=== PATIENT | male | born 1960 | race Caucasian/White ===

== ENCOUNTER 2017-07-02 04:23 | Emergency (ER) | payer BC ==
[2017-07-02 04:53] LABS: ABSOLUTE BASOPHILS # (AUTO) 0.1 10^3/uL (0.0-0.2); ABSOLUTE EOSINOPHILS # (AUTO) 0.2 10^3/uL (0.0-0.6); ABSOLUTE LYMPHOCYTES (AUTO) 1.7 10^3/uL (0.5-4.7); ABSOLUTE MONOCYTES (AUTO) 0.6 10^3/uL (0.1-1.4); ABSOLUTE NEUT (AUTO) 10.4 10^3/uL (1.7-8.2); BASOPHILS % (AUTO) 0.4 % (0-2); EOSINOPHILS % (AUTO) 1.2 % (0-6); HEMATOCRIT 24.7 % (37.9-51.0); HEMOGLOBIN 8.3 g/dL (13.5-17.0); LYMPHOCYTES % (AUTO) 13.4 % (13-45); MEAN CORPUSCULAR HEMOGLOBIN 28.5 pg (27.0-33.4); MEAN CORPUSCULAR HGB CONC 33.6 g/dL (32.0-36.0); MEAN CORPUSCULAR VOLUME 85 fl (80-97); MONOCYTES % (AUTO) 4.3 % (3-13); PLATELET COUNT 169 10^3/uL (150-450); RED BLOOD COUNT 2.91 10^6/uL (4.35-5.55); RED CELL DISTRIBUTION WIDTH 13.2 % (11.5-14.0); SEGMENTED NEUTROPHILS % (AUTO) 80.7 % (42-78); TOTAL CELLS COUNTED % (AUTO) 100 %; WHITE BLOOD COUNT 12.9 10^3/uL (4.0-10.5)
[2017-07-02] MEDS ORDERED: NORMAL SALINE 1000 ML 500 ML IV ONE (04:54)
[2017-07-02 05:00] LABS: ALANINE AMINOTRANSFERASE 24 U/L (21-72); ALBUMIN 2.7 g/dL (3.5-5.0); ALKALINE PHOSPHATASE 62 U/L (38-126); ANION GAP 9 (5-19); ASPARTATE AMINO TRANSFERASE 12 U/L (17-59); BILIRUBIN,TOTAL < 0.1 mg/dL (0.2-1.3); BLOOD UREA NITROGEN 39 mg/dL (7-20); CALCIUM 8.6 mg/dL (8.4-10.2); CARBON DIOXIDE 28 mmol/L (22-30); CHLORIDE 106 mmol/L (98-107); GLUCOSE 131 mg/dL (75-110); LIPASE 16.2 U/L (23-300); POTASSIUM 4.4 mmol/L (3.6-5.0); SODIUM 142.7 mmol/L (137-145); TOTAL PROTEIN 4.8 g/dL (6.3-8.2)
--- NOTE | 2017-07-02 05:22 | ER Document Report ---
ED GI/ - General Mode of Arrival: Medic Information source: Patient TRAVEL OUTSIDE OF THE [place] IN LAST 30 DAYS: No <CARLOS A BROWN - Last Filed: 07/02/17 06:38> <SHANNAN PAINTING - Last Filed: 07/02/17 11:08> - General Chief Complaint: Nausea/Vomiting Stated Complaint: NAUSEA/VOMITING Time Seen by Provider: 07/02/17 04:40 Notes: Patient is a 56-year-old male who presents to the ER via EMS today for nausea, vomiting that woke him up at 2 AM this morning. Patient states that he also had it 2 days ago. He denies any diarrhea, blood in his vomit or stool, abdominal pain, chest pain, fevers or chills that he knows of. Patient states that the only thing he can think of is that he drinks some juice that had been sitting in the car for more than 4 days. (CARLOS A BROWN) - Related Data Allergies/Adverse Reactions: No Known Allergies Allergy (Unverified 07/02/17 05:52) Past Medical History - General Information source: Patient - Social History Smoking Status: Unknown if Ever Smoked Family History: Reviewed & Not Pertinent Pulmonary Medical History: Reports: Hx Asthma Past Surgical History: Reports: Hx Umbilical Hernia <CARLOS A BROWN - Last Filed: 07/02/17 06:38> Review of Systems - Review of Systems Constitutional: See HPI EENT: No symptoms reported Cardiovascular: No symptoms reported Respiratory: No symptoms reported Gastrointestinal: See HPI Genitourinary: No symptoms reported Male Genitourinary: No symptoms reported Musculoskeletal: No symptoms reported Skin: No symptoms reported Hematologic/Lymphatic: No symptoms reported Neurological/Psychological: No symptoms reported <CARLOS A BROWN - Last Filed: 07/02/17 06:38> Physical Exam <CARLOS A BROWN - Last Filed: 07/02/17 06:38> <SHANNAN PAINTING - Last Filed: 07/02/17 11:08> - Vital signs Vitals: Temp Pulse Resp BP Pulse Ox 97.3 F 79 18 100/59 L 96 07/02/17 04:34 07/02/17 04:34 07/02/17 04:34 07/02/17 04:34 07/02/17 04:34 - Notes Notes: PHYSICAL EXAMINATION: GENERAL: Mildly ill-appearing, but laughing, talkative, in no acute distress. HEAD: Atraumatic, normocephalic. EYES: Pupils equal round and reactive to light, extraocular movements intact, sclera anicteric, conjunctiva are normal. NECK: Normal range of motion, supple without lymphadenopathy LUNGS: CTAB and equal. No wheezes rales or rhonchi. HEART: Regular rate and rhythm without murmurs ABDOMEN: Soft, no tenderness. No guarding, no rebound BACK: no vertebral tenderness, normal ROM GI/: no CVA tenderness EXTREMITIES: Normal range of motion, no pitting edema. No cyanosis. NEUROLOGICAL: Cranial nerves grossly intact. Normal sensory/motor exams. PSYCH: Normal mood, normal affect. SKIN: Warm, Dry, normal turgor, no rashes or lesions noted (CARLOS A BROWN) Course - Laboratory Result Diagrams: 07/02/17 04:34 07/02/17 04:34 <CARLOS A BROWN - Last Filed: 07/02/17 06:38> - Laboratory Result Diagrams: 07/02/17 04:34 07/02/17 04:34 <SHANNAN PAINTING - Last Filed: 07/02/17 11:08> - Re-evaluation Re-evalutation: 07/02/17 05:46 Hemoglobin of 8.3, white blood cell count of 12.9, BUN of 39, rectal exam shows dark, tarry stools and black blood all around the anus, obviously positive for blood. Patient has not vomited here in the emergency department. I have ordered packed red blood cells for active bleeding, Protonix and IV fluids. Patient has no pain. We have no gastroenterology organic preparation technician here at [facility], I have called [facility] and initiated transfer. 07/02/17 06:38 Dr. Costello, hospitalist with [facility] accepts pt at this time for transfer. (CARLOS A BROWN) 07/02/17 09:05 RN reports patient feeling nauseated. Zofran ordered. Pt transported to [facility] infusing. (SHANNAN PAINTING) - Vital Signs Vital signs: Temp Pulse Resp BP Pulse Ox 98.2 F 79 13 112/70 100 07/02/17 09:28 07/02/17 09:28 07/02/17 09:28 07/02/17 09:28 07/02/17 09:28 - Laboratory Laboratory results interpreted by me: 07/02/17 07/02/17 07/02/17 04:34 04:34 06:20 WBC 12.9 H RBC 2.91 L Hgb 8.3 L Hct 24.7 L Seg Neutrophils % 80.7 H Absolute Neutrophils 10.4 H BUN 39 H Glucose 131 H Total Bilirubin < 0.1 L AST 12 L Total Protein 4.8 L Albumin 2.7 L Lipase 16.2 L Crossmatch See Detail Discharge <CARLOS A BROWN - Last Filed: 07/02/17 06:38> <SHANNAN PAINTING - Last Filed: 07/02/17 11:08> - Discharge Clinical Impression: GI bleed Qualifiers: GI bleed type/associated pathology: melena Qualified Code(s): K92.1 - Melena Condition: Stable Disposition: [facility] Additional Instructions: Return immediately for any new or worsening symptoms. Follow up with primary care provider, call tomorrow to make followup appointment.
[2017-07-02] MEDS ORDERED: PANTOPRAZOLE SODIUM 40 MG VIAL IV ONE (05:23)
[2017-07-02] MEDS ORDERED: NORMAL SALINE 250 ML IV PRN (05:45)
[2017-07-02] MEDS ORDERED: PANTOPRAZOLE SODIUM 40 MG VIAL IV PRN (06:38)
[2017-07-02 07:22] LABS: APPEARANCE,URINE CLEAR; BILIRUBIN,URINE NEGATIVE (NEGATIVE); COLOR,URINE YELLOW; GLUCOSE, URINE NEGATIVE (NEGATIVE); KETONES,URINE NEGATIVE (NEGATIVE); LEUKOCYTE ESTERASE,URINE NEGATIVE (NEGATIVE); NITRITE,URINE NEGATIVE (NEGATIVE); PROTEIN,URINE NEGATIVE (NEGATIVE); UROBILINOGEN,URINE NEGATIVE mg/dL (<2.0)
[2017-07-02] MEDS ORDERED: ONDANSETRON HCL INJ/PF 4 MG/2 ML SDV IV ONE (09:10)
[2017-07-02 09:42] VITALS: BP 112/70
== END 2017-07-02 09:40 | disposition short-term general hospital (02) ==
LOC: ER 04:23
DX: K92.1 Melena (principal); R11.2 Nausea with vomiting, unspecified; J45.909 Unspecified asthma, uncomplicated
CPT/HCPCS: 96376; 99285; 96361; 96375; 96365; 96366; 86900; 86901; 36415; 36430; 86850; 83690; 85025; 82272; 80053; 81001; 86920; P9016; S0164; J2405; J7030

== ENCOUNTER 2020-03-22 02:08 | Inpatient (IN) | payer SELFPAY ==
--- NOTE | 2020-03-22 02:36 | ER Document Report ---
Entered by STEPHANIE PATEL SCRIBE 03/22/20 0225 Acting as scribe for:ORI SMITH IV, MD ED Psych Disorder / Suicide - General Mode of Arrival: Medic Information source: Emergency Med Personnel Cannot obtain history due to: Altered mental status TRAVEL OUTSIDE OF THE [place] IN LAST 30 DAYS: No <ORI SMITH IV - Last Filed: 03/22/20 06:26> <RUBY MAGUIRE - Last Filed: 03/22/20 16:07> - General Chief Complaint: Suicidal Ideation Stated Complaint: SUICIDE ATTEMPT Time Seen by Provider: 03/22/20 02:14 Notes: This 59-year-old male patient presents to the emergency department today with complaints of a possible suicide attempt prior to arrival. EMS reported that the patient's "heard a pill bottle shaking" at around 8 PM tonight and it was tylenol PM. At 10 PM he left his house and never came back. states she thinks he took #90 tylenol PM. Patient's called law enforcement and they began a search for the patient as he has been depressed and she thought he may have ran away to commit suicide. Apparently law enforcement searched for a few hours until they found the patient due to him snoring in the noel. Patient is altered and unable to provide any meaningful history. (ORI SMITH IV) - Related Data Allergies/Adverse Reactions: No Known Allergies Allergy (Unverified 07/02/17 05:52) Past Medical History - General Cannot obtain history due to: Altered mental status - Social History Smoking Status: Unknown if Ever Smoked Family History: Reviewed & Not Pertinent Pulmonary Medical History: Reports: Hx Asthma Past Surgical History: Reports: Hx Umbilical Hernia <ORI SMITH IV - Last Filed: 03/22/20 06:26> Review of Systems - Review of Systems -: Yes ROS unobtainable due to patient's medical condition <ORI SMITH IV - Last Filed: 03/22/20 06:26> Physical Exam <ORI SMITH IV - Last Filed: 03/22/20 06:26> - Vital signs Vitals: Temp Pulse Resp BP Pulse Ox 90.3 F L 116 H 21 H 166/88 H 97 03/22/20 02:10 03/22/20 02:10 03/22/20 02:10 03/22/20 02:10 03/22/20 02:10 - Notes Notes: Physical Exam: General: Awake but not alert or oriented. HEENT: Normocephalic. PERRL. Extraocular movements intact. Oropharynx clear. There are superficial abrasions to the top of the head. Neck: Supple. Non-tender. Respiratory: No respiratory distress. Clear and equal breath sounds bilaterally. Cardiovascular: Tachycardic, regular rhythm. Abdominal: Normal Inspection. Non-tender. No distension. Normal Bowel Sounds. Back: No gross abnormalities. Extremities: Moves all four extremities. Upper extremities: Normal inspection. Normal ROM. Lower extremities: Normal inspection. No edema. Normal ROM. Neurological: Mumbled incomprehensible speech Psychological: Unable to assess Skin: Cold to the touch. Dry. Normal color. (ORI SMITH IV) Course - Laboratory Results Result Diagrams: 03/22/20 02:16 03/22/20 02:16 Critical Laboratory Results Reviewed: Yes Attending or Supervising Physician who Reviewed Labs: ORI SMITH IV - Radiology Results Critical Radiology Results Reviewed: No Critical Results - Transfer of Care Care transferred to following provider: Dr. Maguire @ 0623 <ORI SMITH IV - Last Filed: 03/22/20 06:26> - Laboratory Results Result Diagrams: 03/22/20 02:16 03/22/20 02:16 <RUBY MAGUIRE JR - Last Filed: 03/22/20 16:07> - Re-evaluation Re-evalutation: 03/22/20 02:36 Differential diagnosis: Drug overdose, suicide attempt, suicidal gesture, acetaminophen overdose 03/22/20 02:48 Patient is alternating between periods of confusion and combativeness where he is trying to pull out his [place] and get out of the bed. Four-point restraints were ordered by this MD after face to face assessment of the patient. 03/22/20 03:09 Patient's Tylenol level came back at 310. Poison control has been contacted for input on management. Certainly this will involve the use of NAC. Given the patient's intermittent episodes of agitation, I am wondering if he took Tylenol PM which contains diphenhydramine. Will consult poison control in terms of options for possible sedation given the patient is in four-point restraints and is very agitated, yelling profanities and is not able to be directed with verbal direction alone. 03/22/20 06:20 Patient discussed with poison control. They agreed with using NAC protocol. They recommended benzodiazepines for agitation and if 1 particular type of benzodiazepine does not work we should switch to a different benzodiazepine and if agitation continues to be a problem despite this, we can call poison control back and speak to one of their grain spouter. (ORI SMITH IV) - Vital Signs Vital signs: Temp Pulse Resp BP Pulse Ox 98.4 F 116 H 14 138/91 H 98 03/22/20 15:56 03/22/20 02:10 03/22/20 15:00 03/22/20 15:00 03/22/20 15:00 - Laboratory Results Laboratory Results Interpreted: 03/22/20 03/22/20 03/22/20 02:16 02:16 02:16 WBC 13.8 H RBC 6.18 H Hgb 17.8 H Hct 53.4 H Absolute Neuts (auto) 10.3 H Carbon Dioxide 12 L Anion Gap 23 H Glucose 225 H Lactic Acid AST Alkaline Phosphatase Creatine Kinase 53 L Total Protein Urine Protein Urine Glucose (UA) Urine Ketones Salicylates 1.8 L Acetaminophen 310 H* 03/22/20 03/22/20 03/22/20 02:34 03:35 03:37 WBC RBC Hgb Hct Absolute Neuts (auto) Carbon Dioxide Anion Gap Glucose Lactic Acid 14.1 H AST 15 L Alkaline Phosphatase 20 L Creatine Kinase Total Protein Urine Protein 30 H Urine Glucose (UA) 150 H Urine Ketones 20 H Salicylates Acetaminophen 251 H* 03/22/20 03/22/20 03/22/20 03:37 08:00 13:40 WBC RBC Hgb Hct Absolute Neuts (auto) Carbon Dioxide Anion Gap Glucose Lactic Acid AST 73 H Alkaline Phosphatase 34 L Creatine Kinase Total Protein 6.2 L Urine Protein Urine Glucose (UA) Urine Ketones Salicylates 1.6 L Acetaminophen 184 H* 60 H - EKG Interpretation by Me Additional EKG results interpreted by me: 03/22/20 02:37 EKG obtained on 03/22/2020 at 0229 hrs. was interpreted by this MD. Findings: Sinus tachycardia, rate 109, normal axis, MI interval appears to be within normal limits, P waves preceding QRS complexes, QRS complexes appear narrow, QTC is 464, there are no obvious patterns of ST segment elevation, depression or reciprocal changes seen to suggest acute myocardial ischemia or infarction. There is no prior EKG readily available for comparison. Impression sinus tachycardia with nonspecific ST segments. (ORI SMITH IV) Critical Care Note - Critical Care Note Total time excluding time spent on procedures (mins): 120 - management of tylenol overdose and hypothermia <ORI SMITH IV - Last Filed: 03/22/20 06:26> <RUBY MAGUIRE JR - Last Filed: 03/22/20 16:07> - Critical Care Note Comments: Room 19 out of restraints at 0 815 and somnolent after Ativan 2 mg IV per nursing staff. I spoke with Dr. Sevilla and he will see the patient presently. This was at 1330. He evaluated patient and ordered a lactic acid. By 1500 patient was awake and asking for something to eat and drink. This case was discussed with TEMITOPE Conway at 1600 and she advised who I spoke to a few minutes later. He advised IMCU for this patient. (RUBY MAGUIRE JR) Discharge <ORI SMITH IV - Last Filed: 03/22/20 06:26> - Discharge Admitting Provider: [facility] (Hospitalist) Unit Admitted: IMCU <RUBY MAGUIRE JR - Last Filed: 03/22/20 16:07> - Discharge Clinical Impression: Suicide attempt, Involuntary commitment Drug overdose, intentional Qualifiers: Encounter type: initial encounter Qualified Code(s): T50.902A - Poisoning by unspecified drugs, medicaments and biological substances, intentional self-harm, initial encounter Acetaminophen overdose Qualifiers: Encounter type: initial encounter Injury intent: intentional self-harm Qualified Code(s): T39.1X2A - Poisoning by 4-Aminophenol derivatives, intentional self-harm, initial encounter Hypothermia Qualifiers: Encounter type: initial encounter Qualified Code(s): T68.XXXA - Hypothermia, initial encounter Condition: Serious Disposition: ADMITTED INPATIENT I personally performed the services described in the documentation, reviewed and edited the documentation which was dictated to the scribe in my presence, and it accurately records my words and actions.
[2020-03-22 02:41] LABS: ABSOLUTE BASOPHILS # (AUTO) 0.1 10^3/uL (0.0-0.2); ABSOLUTE LYMPHOCYTES (AUTO) 2.6 10^3/uL (0.5-4.7); ABSOLUTE MONOCYTES (AUTO) 0.7 10^3/uL (0.1-1.4); ABSOLUTE NEUT (AUTO) 10.3 10^3/uL (1.7-8.2); BASOPHILS % (AUTO) 0.7 % (0-2); EOSINOPHILS % (AUTO) 0.2 % (0-6); HEMATOCRIT 53.4 % (37.9-51.0); HEMOGLOBIN 17.8 g/dL (13.5-17.0); LYMPHOCYTES % (AUTO) 18.9 % (13-45); MEAN CORPUSCULAR HEMOGLOBIN 28.8 pg (27.0-33.4); MEAN CORPUSCULAR HGB CONC 33.3 g/dL (32.0-36.0); MEAN CORPUSCULAR VOLUME 86 fl (80-97); MONOCYTES % (AUTO) 5.3 % (3-13); PLATELET COUNT 166 10^3/uL (150-450); RED BLOOD COUNT 6.18 10^6/uL (4.35-5.55); RED CELL DISTRIBUTION WIDTH 13.4 % (11.5-14.0); SEGMENTED NEUTROPHILS % (AUTO) 74.9 % (42-78); TOTAL CELLS COUNTED % (AUTO) 100 %; WHITE BLOOD COUNT 13.8 10^3/uL (4.0-10.5)
[2020-03-22] MEDS ORDERED: NORMAL SALINE 1000 ML 1,000 ML IV ONE ×4 (02:43→14:32)
[2020-03-22 02:51] LABS: ALBUMIN 4.3 g/dL (3.5-5.0); ALKALINE PHOSPHATASE 101 U/L (38-126); ASPARTATE AMINO TRANSFERASE 20 U/L (17-59); BILIRUBIN,DIRECT 0.3 mg/dL (0.0-0.4); BILIRUBIN,TOTAL 0.7 mg/dL (0.2-1.3); BLOOD UREA NITROGEN 10 mg/dL (7-20); CALCIUM 9.1 mg/dL (8.4-10.2); CARBON DIOXIDE 12 mmol/L (22-30); CHLORIDE 103 mmol/L (98-107); GLUCOSE 225 mg/dL (75-110); POTASSIUM 3.6 mmol/L (3.6-5.0); SALICYLATE 1.8 mg/dL (2.0-20.0); TOTAL PROTEIN 7.1 g/dL (6.3-8.2)
[2020-03-22 02:54] LABS: ALCOHOL < 10 mg/dL (NONE DETECTED)
[2020-03-22 02:57] LABS: ANION GAP 23 (5-19)
[2020-03-22 02:59] LABS: ACETAMINOPHEN 310 ug/mL (10-30)
[2020-03-22 03:04] LABS: APPEARANCE,URINE CLEAR; BILIRUBIN,URINE NEGATIVE (NEGATIVE); COLOR,URINE YELLOW; GLUCOSE, URINE 150 mg/dL (NEGATIVE); KETONES,URINE 20 mg/dL (NEGATIVE); LEUKOCYTE ESTERASE,URINE NEGATIVE (NEGATIVE); NITRITE,URINE NEGATIVE (NEGATIVE); PROTEIN,URINE 30 mg/dL (NEGATIVE); URINE SPECIFIC GRAVITY 1.029; UROBILINOGEN,URINE NEGATIVE mg/dL (<2.0)
[2020-03-22] MEDS ORDERED: ACETYLCYSTEINE INJ 6000 MG/30 ML IV ONE ×3 (03:11→08:12)
[2020-03-22 03:12] LABS: URINE AMPHETAMINES SCREEN NEGATIVE; URINE BARBITURATES SCREEN NEGATIVE; URINE COCAINE SCREEN NEGATIVE; URINE MARIJUANA (THC) SCREEN NEGATIVE; URINE METHADONE SCREEN NEGATIVE; URINE PHENCYCLIDINE SCREEN NEGATIVE
[2020-03-22] MEDS ORDERED: LORAZEPAM INJ 2 MG/1 ML VIAL IV ONE ×2 (03:17→07:39)
[2020-03-22 03:22] LABS: URINE BENZODIAZEPINES SCREEN NEGATIVE
[2020-03-22 05:30] LABS: ALBUMIN 3.8 g/dL (3.5-5.0); ALKALINE PHOSPHATASE 20 U/L (38-126); ASPARTATE AMINO TRANSFERASE 15 U/L (17-59); BILIRUBIN,DIRECT 0.2 mg/dL (0.0-0.4); BILIRUBIN,TOTAL 0.4 mg/dL (0.2-1.3); TOTAL PROTEIN 6.3 g/dL (6.3-8.2)
[2020-03-22 05:46] LABS: ACETAMINOPHEN 251 ug/mL (10-30)
[2020-03-22 08:42] LABS: ALBUMIN 3.6 g/dL (3.5-5.0); ALKALINE PHOSPHATASE 34 U/L (38-126); ASPARTATE AMINO TRANSFERASE 30 U/L (17-59); BILIRUBIN,DIRECT 0.3 mg/dL (0.0-0.4); BILIRUBIN,TOTAL 0.6 mg/dL (0.2-1.3); TOTAL PROTEIN 6.2 g/dL (6.3-8.2)
[2020-03-22 08:56] LABS: ACETAMINOPHEN 184 ug/mL (10-30)
--- NOTE | 2020-03-22 09:00 | EKG REPORT ---
SEVERITY:- BORDERLINE ECG - SINUS RHYTHM BORDERLINE LEFT AXIS DEVIATION BORDERLINE PROLONGED QT INTERVAL : Confirmed by: Dat Ford MD 22-Mar-2020 09:00:25
--- NOTE | 2020-03-22 09:01 | EKG REPORT ---
SEVERITY:- ABNORMAL ECG - SINUS OR ECTOPIC ATRIAL TACHYCARDIA PROBABLE LEFT ATRIAL ABNORMALITY NONSPECIFIC INTRAVENTRICULAR CONDUCTION DELAY : Confirmed by: Dat Ford MD 22-Mar-2020 09:01:01
[2020-03-22] MEDS ORDERED: ONDANSETRON HCL INJ/PF 4 MG/2 ML SDV IV ONE (09:15)
[2020-03-22] MEDS ORDERED: PROMETHAZINE HCL INJ 25 MG/1 ML VIAL IV ONE (10:12)
[2020-03-22 14:19] LABS: ACETAMINOPHEN 60 ug/mL (10-30); ALBUMIN 3.6 g/dL (3.5-5.0); ALKALINE PHOSPHATASE 56 U/L (38-126); ASPARTATE AMINO TRANSFERASE 73 U/L (17-59); BILIRUBIN,DIRECT 0.3 mg/dL (0.0-0.4); TOTAL PROTEIN 6.3 g/dL (6.3-8.2)
--- NOTE | 2020-03-22 14:24 | RADIOLOGY REPORT (SQ) ---
EXAM DESCRIPTION: CHEST SINGLE VIEW IMAGES COMPLETED DATE/TIME: 03/22/2020 12:58 pm REASON FOR STUDY: vomiting ?asp COMPARISON: None. EXAM PARAMETERS: NUMBER OF VIEWS: One view. TECHNIQUE: Single frontal radiographic view of the chest acquired. RADIATION DOSE: NA LIMITATIONS: None. FINDINGS: LUNGS AND PLEURA: No opacities, masses or pneumothorax. No pleural effusion. MEDIASTINUM AND HILAR STRUCTURES: No masses. Contour normal. HEART AND VASCULAR STRUCTURES: Heart normal in size. Normal vasculature. BONES: No acute findings. HARDWARE: None in the chest. OTHER: No other significant finding. IMPRESSION: NO ACUTE RADIOGRAPHIC FINDING IN THE CHEST. TECHNICAL DOCUMENTATION: JOB ID: [id number] 2010 [employer]- All Rights Reserved Reading location - IP/workstation name: [email or web address]
--- NOTE | 2020-03-22 16:57 | ER Document Report ---
Doctor's Note Notes: 03/22/20 16:57 Patient's vital signs and previous labs, diagnostic images reviewed. Acetaminophen level has dramatically decreased, lactic is normal. reviewed mental health notes, nurse's notes and previous providers notes. VSS. Pt is in no distress at this time. Denies any SI or HI. General: A&Ox3. Answers questions appropriately. Heart: RRR Lungs: CTAB Psych: Flat affect A/P: Continue monitoring and rec's per MH. Normal diet plan: We will stay at least for another day, continue to monitor.
[2020-03-22] MEDS ORDERED: MAG HYDROX/AL HYDROX/SIMETH SUSP 30 ML UDCUP PO PRN (17:03)
[2020-03-22] MEDS ORDERED: PROMETHAZINE HCL INJ 25 MG/1 ML VIAL IV PRN (17:03)
[2020-03-22] MEDS ORDERED: MAGNESIUM HYDROXIDE SUSP 30 ML UDCUP PO PRN (17:03)
--- NOTE | 2020-03-22 17:03 | PDOC CRITICAL CARE PROG REPORT ---
General Date:: 03/22/20 Resuscitation Status: Full Code Events in the past 12 to 24 Hours:: Found in the noel after apparent suicide attempt by intentional OD. Review of systems relevant to events:: Neurologic Reason for ICU Addmission:: Evaluation - Medications: Medications reviewed and adjusted accordingly: Yes Vasopressors:: None Sedation:: None Physical Exam Vital Signs: Temp Pulse Resp BP Pulse Ox 98.4 F 116 H 14 138/91 H 98 03/22/20 15:56 03/22/20 02:10 03/22/20 15:00 03/22/20 15:00 03/22/20 15:00 Intake & Output 03/21/20 03/22/20 03/23/20 06:59 06:59 06:59 Intake Total 3000 Balance 3000 Weight 100.6 kg Weight/Height Weight 100.6 kg Height 6 ft 1 in General appearance: PRESENT: no acute distress, disheveled Head exam: PRESENT: atraumatic, normocephalic Eye exam: PRESENT: conjunctiva pink, EOMI, PERRLA. ABSENT: scleral icterus Ear exam: PRESENT: normal external ear exam Mouth exam: PRESENT: moist, tongue midline Respiratory exam: PRESENT: clear to auscultation tye, decreased breath sounds. ABSENT: rales, rhonchi, wheezes Cardiovascular exam: PRESENT: RRR. ABSENT: diastolic murmur, rubs, systolic murmur GI/Abdominal exam: PRESENT: normal bowel sounds, soft. ABSENT: distended, guarding, mass, organolmegaly, rebound, tenderness Rectal exam: PRESENT: deferred Extremities exam: PRESENT: full ROM. ABSENT: calf tenderness, clubbing, pedal edema Musculoskeletal exam: PRESENT: normal inspection Neurological exam: PRESENT: altered, awake, CN II-XII grossly intact Psychiatric exam: PRESENT: agitated Skin exam: PRESENT: dry, intact, warm, other - Some facial scratches.. ABSENT: cyanosis, rash Laboratory/Radiographs Laboratory Results: 03/22/20 02:16 03/22/20 02:16 03/22/20 03/22/20 03/22/20 02:16 02:16 02:34 WBC 13.8 H RBC 6.18 H Hgb 17.8 H Hct 53.4 H MCV 86 MCH 28.8 MCHC 33.3 RDW 13.4 Plt Count 166 Seg Neutrophils % 74.9 Sodium 138.1 Potassium 3.6 Chloride 103 Carbon Dioxide 12 L Anion Gap 23 H BUN 10 Creatinine 0.91 Est GFR ( Amer) > 60 Glucose 225 H Lactic Acid Calcium 9.1 Total Bilirubin 0.7 AST 20 Alkaline Phosphatase 101 Total Protein 7.1 Albumin 4.3 Urine Color YELLOW Urine Appearance CLEAR Urine pH 5.0 Ur Specific [place] 1.029 Urine Protein 30 H Urine Glucose (UA) 150 H Urine Ketones 20 H Urine Blood NEGATIVE Urine Nitrite NEGATIVE Ur Leukocyte Esterase NEGATIVE Urine WBC (Auto) 0 Urine RBC (Auto) 0 03/22/20 03/22/20 03/22/20 03:35 03:37 08:00 WBC RBC Hgb Hct MCV MCH MCHC RDW Plt Count Seg Neutrophils % Sodium Potassium Chloride Carbon Dioxide Anion Gap BUN Creatinine Est GFR ( Amer) Glucose Lactic Acid 14.1 H Calcium Total Bilirubin 0.4 0.6 AST 15 L 30 Alkaline Phosphatase 20 L 34 L Total Protein 6.3 6.2 L Albumin 3.8 3.6 Urine Color Urine Appearance Urine pH Ur Specific [place] Urine Protein Urine Glucose (UA) Urine Ketones Urine Blood Urine Nitrite Ur Leukocyte Esterase Urine WBC (Auto) Urine RBC (Auto) 03/22/20 03/22/20 13:40 15:53 WBC RBC Hgb Hct MCV MCH MCHC RDW Plt Count Seg Neutrophils % Sodium Potassium Chloride Carbon Dioxide Anion Gap BUN Creatinine Est GFR ( Amer) Glucose Lactic Acid 1.1 Calcium Total Bilirubin 1.0 AST 73 H Alkaline Phosphatase 56 Total Protein 6.3 Albumin 3.6 Urine Color Urine Appearance Urine pH Ur Specific [place] Urine Protein Urine Glucose (UA) Urine Ketones Urine Blood Urine Nitrite Ur Leukocyte Esterase Urine WBC (Auto) Urine RBC (Auto) 03/22/20 02:16 Creatine Kinase 53 L Impressions: Chest X-Ray 03/22/20 13:42 IMPRESSION: NO ACUTE RADIOGRAPHIC FINDING IN THE CHEST. All labs, radiographs, diagnostic studies and EKGs were personally reviewed: Yes In addition, reports of radiographic and diagnostic studies were read: Yes Assessment and Plan - Diagnosis (1) Acetaminophen overdose Qualifiers: Encounter type: initial encounter Injury intent: intentional self-harm Qualified Code(s): T39.1X2A - Poisoning by 4-Aminophenol derivatives, intentional self-harm, initial encounter Is this a current diagnosis for this admission?: Yes Plan: His level was quite high on presentation > 600. However it is now 60 on a Mucormyst drip to end at 1AM tomorrow. LFTs normal thus far. (2) Aspiration into airway Qualifiers: Encounter type: initial encounter Qualified Code(s): T17.908A - Unspecified foreign body in respiratory tract, part unspecified causing other injury, initial encounter Is this a current diagnosis for this admission?: Yes Plan: Although there is no clinical signs, with his altered mental status and vomit on his face and gown I would presume there is an element of aspiration. Antibiotics not indicated. (3) Drug overdose, intentional Qualifiers: Encounter type: initial encounter Qualified Code(s): T50.902A - Poisoning by unspecified drugs, medicaments and biological substances, intentional self- harm, initial encounter Is this a current diagnosis for this admission?: Yes Plan: Apparently with tylenol PM. He is appropriately IVCd. (4) Hypothermia Qualifiers: Encounter type: initial encounter Qualified Code(s): T68.XXXA - Hypothermia, initial encounter Is this a current diagnosis for this admission?: Yes Plan: He had a core temp of 90 degrees on presentation, now normal. (5) Lactic acid acidosis Is this a current diagnosis for this admission?: Yes Plan: Initial level 14.1 repeat is 1.1 Plan Summary: He is stable and waking up. Mucormyst to end at 1 AM. On room air. Does not need the ICU. Critical Time Critical Time (minutes): 45 Level of Care: IMCU Anticipated discharge: Home Anticipated DC Timeframe: Other -: 1. The care of a critical patient is a dynamic process. This note is a title insurance sales representative synopsis but static in nature. The timeframe for treatments given in order is not necessarily the actual time these treatments may have been done. 2. This patient requires critical care secondary to ongoing requirements for therapy not offered or safe outside the critical care environment. Transfer to a lower level of care will result in altered life or limb morbidity and mort ality. 3. Multidisciplinary rounds completed. 4. ABCDE bundle addressed.
--- NOTE | 2020-03-22 17:22 | PSYCHOLOGICAL NOTE ---
Psych Note - Psych Note Date seen by psych provider: 03/22/20 Time seen by psych provider: 10:31 Psych Note: Reason for Consult: possible overdose [id number] Patient is a 59 year old male who presented to the [facility] ED today via EMS, petitioned for IVC. Patient is lethargic and unable to open eyes or speak any words at this time. He will remain on IVC until he can be appropriately assessed. Collateral: [id number] Spoke to patients son, Joe, in the waiting room of the ED. He states he has not spoken to his father in about 2 weeks. He reports fair relationship with father. Son reports no mental health history of father that he is aware of. Son denies history of suicide attempts. Son denies family mental health history or history of suicide attempts. Son notes that patient injured his hand last year and has been on workers compensation for almost a year. He denies any knowledge of depression or depressed mood lately. States he does not know much about relationship with patient and Gay. Gay, ex-girlfriend, [phone] She reports no known mental health history. She reports she is patients ex- boyfriend. She states, We had words in January and I was not going to put him out in the street with no place to go. She reports she went to get a tattoo and says the money that used to go into their joint account stopped and she is unsure if this triggered him. She reports patient called her a liar and said she did not get a tattoo. He was upset and left with a bottle of Tylenol and water. She reports a bit after, patient banged on the window and said he took of a bottle. Gay reports patient continued to tell her, Make sure you tell them it is your fault. She reports calling 9-11. Patient was making statements such as it was ex-girlfriends fault and that shed find him floating in the water. Gay reports police officers came and brought the dog and found him in the noel. Said it was hard to wake up him. Gay reports texting his son and telling him patient is not welcome back in her house. She has been trying to get him to move out and he will not. Gay lives with her 87 year old mother. She states she is unsure if it was a cry for help or thought I would change my mind. She reports her and patient have been together 6 years and living together for 4.5 years. She states he taking Tylenol, nightly, since living together, for sleep. Agy notes patient injured his hand in July 2019 and has been on workers compensation. She notes he has made passive suicidal statements in the past, but had never attempted suicide. She denies history of psychiatric medications, therapy, or inpatient hospitalizations. She notes if patients son wants to get his things, he is welcome to, however if patient wants to come get his things, he needs to come with a harbor police launch commander. Patient is lethargic and completely unable to engage with clinician at this time. He does not open his eyes and when spoke to, patient makes noises with his throat. Clinical Presentation: lethargic; cannot assess patient Impression\\plan: Patient is currently under full IVC. Due to overdose amount, patient is unable to engage in evaluation. There are significant concerns for patients safety due to his recent break up of a girlfriend of 6 years, being on workers compensation for several months, not having a home, his impulsivity, and after patient overdosed he went into the noel, indicating not wanting to be found. Until patient can engage in evaluation, behavioral health cannot confirm safety of patient. Dr. Shaw was consulted to care management of this patient; attending physicians in agreement with recommendations and disposition. At this time, it appears patient is going to be admitted to the hospital, medically. Case management: [id number] faxed IVC paperwork to automation test engineer [id number] fax was successful [id number] Checked back in with patient. He states he took Tylenol pm. When asked how much he states he took "whatever was in the bottle." Patient reports he was "somewhat upset and disturbed." He reports he "can't decide" if he is glad to be alive. He denies current suicidal ideation, plan, and intent. Patient was alert and oriented to self, person, place, time and situation. Mood was disinterested with flat affect. He denies current suicidal and homicidal ideation, plan, and intent. Patient did not appear to be responding to internal stimuli as evidenced by fair eye contact and answering questions appropriately when addressed. Thought processes are linear and organized. Conversational speech was within normal limits for rate, tone and prosody. Intellectual abilities are estimated to be average. Insight, judgment, and impulse control were poor as evidenced by intentionally ingesting a bottle of Tylenol pm. Patient engages inappropriately. IVC Criteria per [place] GS 122C Dangerous to others Within the relevant past the individual No has inflicted or attempted to inflict or threatened to inflict serious bodily harm on another AND No that there is a reasonable probability that this conduct will be repeated. OR No has acted in such a way as to create a substantial risk of serious bodily harm to another AND No that there is a reasonable probability that this conduct will be repeated. OR No has engaged in extreme destruction of property AND NO that there is a reasonable probability that this conduct will be repeated. Previous episodes of dangerousness to others, when applicable, may be considered when determining reasonable probability of future dangerous conduct. Clear, cogent, and convincing evidence that an individual has committed a homicide in the relevant past is prima facie evidence of dangerousness to others. Dangerous to self Within the relevant past the individual has done any of the following: acted in such a way as to show ALL of the following: No The individual would be unable without care, supervision, and the continued assistance of others not otherwise available, to exercise self- control, judgment, and discretion in the conduct of the individual's daily responsibilities and social relations or to satisfy the individual's need for nourishment, personal or medical care, longterm, or self-protection and safety. AND No There is a reasonable probability of the individual suffering serious physical debilitation within the near future unless adequate treatment is given. A showing of behavior that is grossly irrational, of actions that the individual is unable to control, of behavior that is grossly inappropriate to the situation, or of other evidence of severely impaired insight and judgment shall create a prima facie inference that the individual is unable to care for himself or herself. OR Yes has attempted suicide or threatened suicide Patient intentionally overdosed on Tylenol pm AND Yes that there is a reasonable probability of suicide unless adequate treatment is given This was reportedly after officially breaking up with his girlfriend of 6 years; he displayed extreme impulsivity; there is concern of additional attempts due to girlfriend stating he cannot come back and if he needs to get his belongings he needs to be escorted by quencher operator OR No has mutilated himself or herself or attempted to mutilate himself or herself AND No that there is a reasonable probability of serious self-mutilation unless adequate treatment is given. NOTE: Previous episodes of dangerousness to self, when applicable, may be considered when determining reasonable probability of physical debilitation, suicide, or self-mutilation. Impression\\plan: Patient is currently under full IVC. Patient minimally engages with clinician. There are significant concerns for patients safety due to his recent break up of a girlfriend of 6 years, being on workers compensation for several months, not having a home, his impulsivity, and after patient overdosed he went into the noel, indicating not wanting to be found. Patient will be re- evaluated tomorrow, 03.23.2020. Dr. Shaw was consulted to care management of this patient; attending physicians in agreement with recommendations and disposition. [address] Schaefer to request a non rapid COVID test to be done in hopes of expediting inpatient placement process.
--- NOTE | 2020-03-22 17:41 | PDOC H&P ---
History of Present Illness Admission Date/PCP: 03/22/20 14:06 Patient complains of: Intentional Tylenol PM overdose History of Present Illness: RUBY GUERIN is a 59 year old male who evidently had an argument with his significant other last night. They evidently broke up in January but are still cohabitating. The argument was, I believe, about finances. When he did not return home for over 2 hours she called the police. A search was initiated. The patient was found unconscious and they report that the only reason they found him was for his snoring. Per reports he took approximately 90 tablets of the Tylenol PM. He has been on the acetylcysteine treatment protocol. He was able to speak to me a little bit during this encounter. He is still a very poor historian so the history part of this encounter is limited. He states that his past medical history is only for COPD. He now does not smoke but he used to be on inhalers. He does not take them anymore. He cannot remember what the inhalers were. I believe he is is an outpatient clinic for his primary care. He thinks [facility]. He needs to get a physical for work, I think yearly, and so he states that he has been seen within the year. He denies any other chronic illnesses such as cardiac or endocrine or psychiatric. Initial evaluation revealed an acetaminophen level at 310. He had a lactic acid of 14.1. He received fluids and was started on the N-acetylcysteine protocol. Through the night his acetaminophen levels have come down significantly. At 3:00 this morning they were down to 251, level was 184 at 8:00 this morning and at 1:00 this afternoon his level was 60. He has not had a significant elevation in his transaminases. His white blood cell count was elevated initially as was his hemoglobin with a hemoglobin of 17.8 and a white blood cell count of 13.8. Patient has very poor dentition. He is coughing and does not understand why his throat is sore. The nursing staff informed me that he was vomiting profusely earlier. It is likely a gastritis from all of the stomach acid. He has very poor dentition. A diet has been ordered. We will start with regular texture and see how he does. He will continue the last dose of N-acetylcysteine as per the protocol. Additional acetaminophen and liver chemistries have been already ordered. The patient is going to be admitted to [facility] for close observation. He is on involuntary commitment at this time and so there will be a sitter as well. He was very agitated earlier in the day but is sitting calmly in the chair at this time. Past Medical History Cardiac Medical History: Denies: Congestive Heart Failure, Coronary Artery Disease, Hypertension Pulmonary Medical History: Reports: Asthma, Chronic Obstructive Pulmonary Dis ease (COPD) Neurological Medical History: Denies: Ischemic CVA, Seizures Endocrine Medical History: Denies: Diabetes Mellitus Type 2 Renal/ Medical History: Denies: Chronic Kidney Disease Malignancy Medical History: Reports: None GI Medical History: Denies: Cirrhosis, Gastroesophageal Reflux Disease, Hepatitis Musculoskeltal Medical History: Reports: None Skin Medical History: Reports: None Psychiatric Medical History: Reports: Tobacco Dependency Traumatic Medical History: Reports: Other - Currently on Workmen's Comp. for an injury to his hand Hematology: Denies: Anemia Infectious Medical History: Reports: None Past Surgical History Past Surgical History: Reports: Other - Incision by the umbilicus. Could not provide details. Social History Information Source: Patient, REPLACED BY [facility] Records Lives with: Spouse/Significant other Smoking Status: Former Smoker Electronic Cigarette use?: No Frequency of Alcohol Use: None - Unknown Hx Recreational Drug Use: No - Unknown Hx Prescription Drug Abuse: No - Advance Directive Resuscitation Status: Full Code Surrogate healthcare decision maker:: We will need to review with patient when his mental status has improved Family History Family History: Other - Unable to obtain Parental Family History Reviewed: No - Unable to obtain Children Family History Reviewed: No Sibling(s) Family History Reviewed.: No Medication/Allergy Home Medications: Oxycodone HCl/Acetaminophen [Percocet 5-325 mg Tablet] 1 - 2 tab PO ASDIR PRN #20 tablet 09/07/14 Promethazine HCl [Phenergan 25 mg Tablet] 25 - 50 mg PO ASDIR PRN #12 tablet 09/07/14 Tamsulosin HCl [Flomax 0.4 mg Cap.sr] 0.4 mg PO DAILY #7 cap.sr.24h 09/07/14 Allergies/Adverse Reactions: No Known Allergies Allergy (Unverified 07/02/17 05:52) Review of Systems Review of Systems: Somewhat difficult to obtain. The following were pertinent positives. Constitutional: PRESENT: weakness - Still feels washed out from the events through last night and this today Nose, Mouth, and Throat: PRESENT: sore throat Respiratory: PRESENT: cough Gastrointestinal: PRESENT: nausea Neurological: PRESENT: confusion Physical Exam Vital Signs: Temp Pulse Resp BP Pulse Ox 98.4 F 116 H 14 138/91 H 98 03/22/20 15:56 03/22/20 02:10 03/22/20 15:00 03/22/20 15:00 03/22/20 15:00 Intake & Output 03/21/20 03/22/20 03/23/20 06:59 06:59 06:59 Intake Total 3000 Balance 3000 Weight 100.6 kg General appearance: PRESENT: cooperative, mild distress, well-developed Head exam: PRESENT: normocephalic, other - Multiple scratches on the patient's scalp. No contusions or ecchymotic lesions Eye exam: PRESENT: conjunctiva pink. ABSENT: scleral icterus Ear exam: PRESENT: normal external ear exam. ABSENT: bleeding, drainage Mouth exam: PRESENT: moist, tongue midline Teeth exam: PRESENT: poor dentation Throat exam: PRESENT: post pharyngeal erythema Neck exam: ABSENT: carotid bruit, JVD, lymphadenopathy, tracheostomy Respiratory exam: PRESENT: clear to auscultation tye, symmetrical, unlabored. ABSENT: rales, rhonchi, tachypnea, wheezes Cardiovascular exam: PRESENT: RRR, +S1, +S2. ABSENT: bradycardia, diastolic murmur, irregular rhythm, systolic murmur, tachycardia GI/Abdominal exam: PRESENT: normal bowel sounds, soft, tenderness - Mild nonspecific tenderness. ABSENT: distended, guarding Rectal exam: PRESENT: deferred Gentrourinary exam: ABSENT: indwelling catheter Extremities exam: ABSENT: pedal edema Musculoskeletal exam: PRESENT: ambulatory, normal inspection. ABSENT: deformity, dislocation Neurological exam: PRESENT: alert - Moderately alert. He did attempt to answer questions., awake, oriented to person, oriented to place, oriented to situation, CN II-XII grossly intact Psychiatric exam: PRESENT: appropriate affect - Affect reflects his current clinical state. ABSENT: agitated, anxious Focused psych exam: ABSENT: delusional, paranoid, restlessness Skin exam: PRESENT: abrasion - On scalp Results Laboratory Results: 03/22/20 02:16 03/22/20 02:16 03/22/20 03/22/20 03/22/20 02:16 02:16 02:34 WBC 13.8 H RBC 6.18 H Hgb 17.8 H Hct 53.4 H MCV 86 MCH 28.8 MCHC 33.3 RDW 13.4 Plt Count 166 Seg Neutrophils % 74.9 Sodium 138.1 Potassium 3.6 Chloride 103 Carbon Dioxide 12 L Anion Gap 23 H BUN 10 Creatinine 0.91 Est GFR ( Amer) > 60 Glucose 225 H Lactic Acid Calcium 9.1 Total Bilirubin 0.7 AST 20 Alkaline Phosphatase 101 Total Protein 7.1 Albumin 4.3 Urine Color YELLOW Urine Appearance CLEAR Urine pH 5.0 Ur Specific [place] 1.029 Urine Protein 30 H Urine Glucose (UA) 150 H Urine Ketones 20 H Urine Blood NEGATIVE Urine Nitrite NEGATIVE Ur Leukocyte Esterase NEGATIVE Urine WBC (Auto) 0 Urine RBC (Auto) 0 03/22/20 03/22/20 03/22/20 03:35 03:37 08:00 WBC RBC Hgb Hct MCV MCH MCHC RDW Plt Count Seg Neutrophils % Sodium Potassium Chloride Carbon Dioxide Anion Gap BUN Creatinine Est GFR ( Amer) Glucose Lactic Acid 14.1 H Calcium Total Bilirubin 0.4 0.6 AST 15 L 30 Alkaline Phosphatase 20 L 34 L Total Protein 6.3 6.2 L Albumin 3.8 3.6 Urine Color Urine Appearance Urine pH Ur Specific [place] Urine Protein Urine Glucose (UA) Urine Ketones Urine Blood Urine Nitrite Ur Leukocyte Esterase Urine WBC (Auto) Urine RBC (Auto) 03/22/20 03/22/20 13:40 15:53 WBC RBC Hgb Hct MCV MCH MCHC RDW Plt Count Seg Neutrophils % Sodium Potassium Chloride Carbon Dioxide Anion Gap BUN Creatinine Est GFR ( Amer) Glucose Lactic Acid 1.1 Calcium Total Bilirubin 1.0 AST 73 H Alkaline Phosphatase 56 Total Protein 6.3 Albumin 3.6 Urine Color Urine Appearance Urine pH Ur Specific [place] Urine Protein Urine Glucose (UA) Urine Ketones Urine Blood Urine Nitrite Ur Leukocyte Esterase Urine WBC (Auto) Urine RBC (Auto) 03/22/20 02:16 Creatine Kinase 53 L Impressions: Chest X-Ray 03/22/20 13:42 IMPRESSION: NO ACUTE RADIOGRAPHIC FINDING IN THE CHEST. Assessment and Plan - Diagnosis (1) Drug overdose, intentional Qualifiers: Encounter type: subsequent encounter Qualified Code(s): T50.902D - Pois oning by unspecified drugs, medicaments and biological substances, intentional self-harm, subsequent encounter Is this a current diagnosis for this admission?: Yes (2) Acetaminophen overdose Qualifiers: Encounter type: subsequent encounter Injury intent: intentional self-harm Qualified Code(s): T39.1X2D - Poisoning by 4-Aminophenol derivatives, intentional self-harm, subsequent encounter Is this a current diagnosis for this admission?: Yes (3) Suicide attempt Is this a current diagnosis for this admission?: Yes (4) Aspiration into airway Qualifiers: Encounter type: subsequent encounter Qualified Code(s): T17.908D - Unspec ified foreign body in respiratory tract, part unspecified causing other injury, subsequent encounter Is this a current diagnosis for this admission?: Yes (5) Lactic acid acidosis Is this a current diagnosis for this admission?: Yes (6) Involuntary commitment Is this a current diagnosis for this admission?: Yes (7) Esophagitis Is this a current diagnosis for this admission?: Yes - Plan Summary Summary: (1) Drug overdose, intentional (2) Acetaminophen overdose (3) Suicide attempt (4) Aspiration into airway (5) Lactic acid acidosis (6) Involuntary commitment (7) Esophagitis 03/22/2020 Patient presented to emergency department. Acetaminophen overdose identified. Dr. Hart initiated treatment protocol. Appropriate laboratory studies already ordered. Acetaminophen overdose intentional-based on the patient's acetaminophen levels this was clearly an intentional overdose. Per my discussion with the emergency department physician as well as psychiatry it was a result of an argument with his "ex "significant other. We will complete the N-acetylcysteine protocol. His acetaminophen level is already down to 60 and I anticipated to be less than 30 by tomorrow morning. He has not exhibited any significant change in his transaminases. He has been seen by psychiatry and is currently under involuntary commitment. Suicide attempt-based on emergency department and psychiatry discussions with family and significant other it appears that this is in fact a suicide attempt. We will continue involuntary commitment and psych will reevaluate the patient tomorrow. Aspiration into airway-the patient had significant vomiting earlier today. Will monitor for aspiration pneumonitis. Esophagitis-the patient's throat is sore. It is likely esophagitis from all of the vomiting. I have actually ordered calcium carbonate on a scheduled basis for a 24-hour period. He will also be on Protonix. He may need full liquid diet or soft mechanical initially. Lactic acidosis-the patient's lactic acid level was 14 on admission. It is down to 1. Improved with IV fluids. Patient will be admitted to [facility]. We will continue involuntary commitment status. A sitter has been ordered. We will monitor him on telemetry. Continue N-acetylcysteine per protocol that the emergency department instituted. Laboratory studies as ordered by the emergency room physician. - Time Time Spent with patient: 35 or more minutes Medications reviewed and adjusted accordingly: Yes Anticipated Discharge Disposition: Unknown Anticipated Discharge Timeframe: within 72 hours
[2020-03-22] MEDS ORDERED: LORAZEPAM INJ 2 MG/1 ML VIAL IV PRN (19:02)
[2020-03-22] MEDS ORDERED: KETOROLAC TROMETHAMINE INJ/PF 30 MG/1 ML SDV IV PRN (19:03)
[2020-03-22] MEDS ORDERED: BACITRACIN ZINC OINTMENT 15 GM ONE (22:19)
[2020-03-22] MEDS: HEPARIN SOD (PORCINE) 5,000 UNIT/ML 1 ML VIAL SUBCUT SCH (22:21)
[2020-03-22] MEDS: CALCIUM CARBONATE 500 MG TAB.CHEW PO SCH (22:21)
[2020-03-22] MEDS: BACITRACIN ZINC OINTMENT 15 GM TP SCH (22:38)
[2020-03-23 03:17] LABS: ABSOLUTE BASOPHILS # (AUTO) 0.1 10^3/uL (0.0-0.2); ABSOLUTE LYMPHOCYTES (AUTO) 1.5 10^3/uL (0.5-4.7); ABSOLUTE MONOCYTES (AUTO) 0.7 10^3/uL (0.1-1.4); ABSOLUTE NEUT (AUTO) 15.9 10^3/uL (1.7-8.2); BASOPHILS % (AUTO) 0.5 % (0-2); EOSINOPHILS % (AUTO) 0.1 % (0-6); HEMATOCRIT 51.7 % (37.9-51.0); HEMOGLOBIN 17.4 g/dL (13.5-17.0); LYMPHOCYTES % (AUTO) 8.2 % (13-45); MEAN CORPUSCULAR HEMOGLOBIN 28.9 pg (27.0-33.4); MEAN CORPUSCULAR HGB CONC 33.7 g/dL (32.0-36.0); MEAN CORPUSCULAR VOLUME 86 fl (80-97); MONOCYTES % (AUTO) 3.9 % (3-13); PLATELET COUNT 148 10^3/uL (150-450); RED BLOOD COUNT 6.03 10^6/uL (4.35-5.55); RED CELL DISTRIBUTION WIDTH 13.9 % (11.5-14.0); SEGMENTED NEUTROPHILS % (AUTO) 87.3 % (42-78); TOTAL CELLS COUNTED % (AUTO) 100 %; WHITE BLOOD COUNT 18.2 10^3/uL (4.0-10.5)
[2020-03-23 03:44] LABS: ALBUMIN 3.8 g/dL (3.5-5.0); ALKALINE PHOSPHATASE 77 U/L (38-126); ASPARTATE AMINO TRANSFERASE 169 U/L (17-59); BILIRUBIN,DIRECT 0.2 mg/dL (0.0-0.4); TOTAL PROTEIN 6.6 g/dL (6.3-8.2)
[2020-03-23 03:45] LABS: ANION GAP 7 (5-19); BLOOD UREA NITROGEN 8 mg/dL (7-20); CALCIUM 9.4 mg/dL (8.4-10.2); CARBON DIOXIDE 20 mmol/L (22-30); CHLORIDE 111 mmol/L (98-107); GLUCOSE 95 mg/dL (75-110); POTASSIUM 4.6 mmol/L (3.6-5.0)
[2020-03-23 03:46] LABS: ACETAMINOPHEN < 10 ug/mL (10-30)
[2020-03-23] MEDS ORDERED: ACETYLCYSTEINE 20% SOLN 6000 MG/30 ML VIAL PO ONE (05:00)
[2020-03-23] MEDS ORDERED: ACETYLCYSTEINE INJ 6000 MG/30 ML IV ONE ×2 (05:09→05:30)
[2020-03-23] MEDS: HEPARIN SOD (PORCINE) 5,000 UNIT/ML 1 ML VIAL SUBCUT SCH ×4 (05:24→22:33)
[2020-03-23] MEDS: PANTOPRAZOLE SODIUM 40 MG TABLET.DR PO SCH (05:40)
[2020-03-23] MEDS: CALCIUM CARBONATE 500 MG TAB.CHEW PO SCH ×4 (08:05→22:34)
[2020-03-23] MEDS: BACITRACIN ZINC OINTMENT 15 GM TP SCH ×2 (09:46→22:33)
--- NOTE | 2020-03-23 15:30 | PDOC PROGRESS REPORT ---
Subjective Date:: 03/23/20 Subjective:: The patient is sitting at the edge of the bed eating lunch. Still with very fla t affect. Nursing reported slightly distended abdomen but no tenderness. The patient does report flatus. Reason For Visit: TYLENOL PM OVERDOSE Physical Exam Vital Signs: Temp Pulse Resp BP Pulse Ox 98.2 F 85 20 128/87 H 96 03/23/20 11:52 03/23/20 14:00 03/23/20 11:52 03/23/20 11:52 03/23/20 11:52 Intake & Output 03/22/20 03/23/20 03/24/20 06:59 06:59 06:59 Intake Total 3000 1000 Output Total 950 Balance 3000 50 Weight 100.6 kg 98.5 kg General appearance: PRESENT: no acute distress, cooperative, well-developed Head exam: PRESENT: atraumatic, normocephalic Eye exam: PRESENT: conjunctiva pink. ABSENT: scleral icterus Ear exam: PRESENT: normal external ear exam. ABSENT: bleeding, drainage Mouth exam: PRESENT: moist, tongue midline Teeth exam: PRESENT: poor dentation Neck exam: ABSENT: carotid bruit, JVD, lymphadenopathy Respiratory exam: PRESENT: clear to auscultation tye, symmetrical, unlabored. ABSENT: accessory muscle use, prolonged expiratory phas, rales, rhonchi, tachypnea, wheezes Cardiovascular exam: PRESENT: RRR, +S1, +S2. ABSENT: bradycardia, diastolic murmur, irregular rhythm, systolic murmur, tachycardia GI/Abdominal exam: PRESENT: distended - Slightly, normal bowel sounds, soft. ABSENT: guarding, tenderness Rectal exam: PRESENT: deferred Gentrourinary exam: ABSENT: indwelling catheter Extremities exam: ABSENT: pedal edema Musculoskeletal exam: PRESENT: ambulatory, normal inspection. ABSENT: deformity, dislocation Neurological exam: PRESENT: alert, awake, oriented to person, oriented to place, oriented to time, oriented to situation. ABSENT: altered Psychiatric exam: PRESENT: flat affect. ABSENT: agitated, anxious Focused psych exam: ABSENT: delusional, paranoid, restlessness Skin exam: PRESENT: abrasion - Scalp. Appear to be healing., dry, normal color, warm. ABSENT: rash Results Laboratory Results: 03/23/20 03:09 03/23/20 03:09 03/22/20 03/23/2021 15:53 03:09 03:09 WBC 18.2 H RBC 6.03 H Hgb 17.4 H Hct 51.7 H MCV 86 MCH 28.9 MCHC 33.7 RDW 13.9 Plt Count 148 L Seg Neutrophils % 87.3 H Sodium Potassium Chloride Carbon Dioxide Anion Gap BUN Creatinine Est GFR ( Amer) Glucose Lactic Acid 1.1 Calcium Magnesium Total Bilirubin 1.0 AST 169 H Alkaline Phosphatase 77 Total Protein 6.6 Albumin 3.8 03/23/20 03:09 WBC RBC Hgb Hct MCV MCH MCHC RDW Plt Count Seg Neutrophils % Sodium 137.5 Potassium 4.6 Chloride 111 H Carbon Dioxide 20 L Anion Gap 7 BUN 8 Creatinine 1.08 Est GFR ( Amer) > 60 Glucose 95 Lactic Acid Calcium 9.4 Magnesium 1.8 Total Bilirubin AST Alkaline Phosphatase Total Protein Albumin 03/22/20 02:16 Creatine Kinase 53 L Impressions: Chest X-Ray 03/22/20 13:42 IMPRESSION: NO ACUTE RADIOGRAPHIC FINDING IN THE CHEST. Assessment and Plan - Diagnosis (1) Drug overdose, intentional Qualifiers: Encounter type: subsequent encounter Qualified Code(s): T50.902D - Poisoni ng by unspecified drugs, medicaments and biological substances, intentional self-harm, subsequent encounter Is this a current diagnosis for this admission?: Yes (2) Acetaminophen overdose Qualifiers: Encounter type: subsequent encounter Injury intent: intentional self-harm Qualified Code(s): T39.1X2D - Poisoning by 4-Aminophenol derivatives, intentional self-harm, subsequent encounter Is this a current diagnosis for this admission?: Yes (3) Suicide attempt Is this a current diagnosis for this admission?: Yes (4) Aspiration into airway Qualifiers: Encounter type: subsequent encounter Qualified Code(s): T17.908D - Unspecified foreign body in respiratory tract, part unspecified causing other injury, subsequent encounter Is this a current diagnosis for this admission?: Yes (5) Lactic acid acidosis Is this a current diagnosis for this admission?: Yes (6) Involuntary commitment Is this a current diagnosis for this admission?: Yes (7) Esophagitis Is this a current diagnosis for this admission?: Yes (8) Elevated transaminase level Is this a current diagnosis for this admission?: Yes - Plan Summary Summary: (1) Drug overdose, intentional (2) Acetaminophen overdose (3) Suicide attempt (4) Aspiration into airway (5) Lactic acid acidosis (6) Involuntary commitment (7) Esophagitis (8) elevated transaminases 03/22/2020 Patient presented to emergency department. Acetaminophen overdose identified. Dr. Hart initiated treatment protocol. Appropriate laboratory studies already ordered. Acetaminophen overdose intentional-based on the patient's acetaminophen levels this was clearly an intentional overdose. Per my discussion with the emergency department physician as well as psychiatry it was a result of an argument with his "ex "significant other. We will complete the N-acetylcysteine protocol. His acetaminophen level is already down to 60 and I anticipated to be less than 30 by tomorrow morning. He has not exhibited any significant change in his transaminases. He has been seen by psychiatry and is currently under involuntary commitment. Suicide attempt-based on emergency department and psychiatry discussions with family and significant other it appears that this is in fact a suicide attempt. We will continue involuntary commitment and psych will reevaluate the patient tomorrow. Aspiration into airway-the patient had significant vomiting earlier today. Will monitor for aspiration pneumonitis. Esophagitis-the patient's throat is sore. It is likely esophagitis from all of the vomiting. I have actually ordered calcium carbonate on a scheduled basis for a 24-hour period. He will also be on Protonix. He may need full liquid diet or soft mechanical initially. Lactic acidosis-the patient's lactic acid level was 14 on admission. It is down to 1. Improved with IV fluids. Patient will be admitted to [facility]. We will continue involuntary commitment status. A sitter has been ordered. We will monitor him on telemetry. Continue N-acetylcysteine per protocol that the emergency department instituted. Laboratory studies as ordered by the emergency room physician. 03/23/2020 Acetaminophen overdose intentional-Poison control reached out to the activities director scouting last night. Because the patient's AST is increasing they recommended continuing with the N-acetylcysteine infusion. Laboratory studies are ordered for this afternoon as well as in the morning. Suicide attempt-affect is still flat. I did touch base with psychiatry. The disposition plan is for placement at a psychiatric facility. In preparation for this Covid testing was ordered. Aspiration into airway-lungs are actually clear. Patient is oxygenating well on room air. Esophagitis-improved. No discomfort while eating. Lactic acidosis-resolved Elevated transaminases-ALT is still normal but the AST is now 169. That is up from 73 last night. Labs ordered for later today as well as the morning. The patient's abdomen is slightly distended. He is passing gas. Bowel sounds are normal. He did have a significant amount of emesis the night of admission. Realistically yesterday afternoon was the first time he had eaten anything. With the sore throat consumption was limited. At the time of this encounter he had eaten approximately 50% of his lunch. His AST is elevated but there is no tenderness in the abdomen. No imaging studies at this time. We will just monitor. - Time Time Spent with patient: 15-24 minutes Medications reviewed and adjusted accordingly: Yes Anticipated Discharge Disposition: Psych Hospital/Unit Anticipated Discharge Timeframe: Unknown
[2020-03-23 16:46] LABS: ALBUMIN 3.7 g/dL (3.5-5.0); ALKALINE PHOSPHATASE 79 U/L (38-126); ASPARTATE AMINO TRANSFERASE 108 U/L (17-59); BILIRUBIN,DIRECT 0.1 mg/dL (0.0-0.4); BILIRUBIN,TOTAL 0.7 mg/dL (0.2-1.3); TOTAL PROTEIN 6.4 g/dL (6.3-8.2)
[2020-03-23] MEDS: DOCUSATE SODIUM 100 MG CAPSULE PO SCH (18:25)
[2020-03-24 00:20] LABS: ALBUMIN 3.5 g/dL (3.5-5.0); ALKALINE PHOSPHATASE 80 U/L (38-126); ASPARTATE AMINO TRANSFERASE 94 U/L (17-59); BILIRUBIN,DIRECT 0.1 mg/dL (0.0-0.4); BILIRUBIN,TOTAL 1.1 mg/dL (0.2-1.3); TOTAL PROTEIN 6.2 g/dL (6.3-8.2)
[2020-03-24 04:41] LABS: ABSOLUTE BASOPHILS # (AUTO) 0.1 10^3/uL (0.0-0.2); ABSOLUTE EOSINOPHILS # (AUTO) 0.1 10^3/uL (0.0-0.6); ABSOLUTE LYMPHOCYTES (AUTO) 2.1 10^3/uL (0.5-4.7); ABSOLUTE MONOCYTES (AUTO) 0.8 10^3/uL (0.1-1.4); ABSOLUTE NEUT (AUTO) 7.7 10^3/uL (1.7-8.2); BASOPHILS % (AUTO) 0.7 % (0-2); EOSINOPHILS % (AUTO) 0.8 % (0-6); HEMATOCRIT 50.9 % (37.9-51.0); LYMPHOCYTES % (AUTO) 19.8 % (13-45); MEAN CORPUSCULAR HEMOGLOBIN 28.8 pg (27.0-33.4); MEAN CORPUSCULAR HGB CONC 33.4 g/dL (32.0-36.0); MEAN CORPUSCULAR VOLUME 86 fl (80-97); MONOCYTES % (AUTO) 7.6 % (3-13); PLATELET COUNT 156 10^3/uL (150-450); RED BLOOD COUNT 5.89 10^6/uL (4.35-5.55); SEGMENTED NEUTROPHILS % (AUTO) 71.1 % (42-78); TOTAL CELLS COUNTED % (AUTO) 100 %; WHITE BLOOD COUNT 10.8 10^3/uL (4.0-10.5)
[2020-03-24 05:06] LABS: ALBUMIN 3.8 g/dL (3.5-5.0); ALKALINE PHOSPHATASE 85 U/L (38-126); ANION GAP 8 (5-19); ASPARTATE AMINO TRANSFERASE 93 U/L (17-59); BILIRUBIN,DIRECT 0.2 mg/dL (0.0-0.4); BILIRUBIN,TOTAL 1.2 mg/dL (0.2-1.3); BLOOD UREA NITROGEN 7 mg/dL (7-20); CALCIUM 9.4 mg/dL (8.4-10.2); CARBON DIOXIDE 24 mmol/L (22-30); CHLORIDE 107 mmol/L (98-107); GLUCOSE 99 mg/dL (75-110); POTASSIUM 3.9 mmol/L (3.6-5.0); TOTAL PROTEIN 6.6 g/dL (6.3-8.2)
[2020-03-24] MEDS: HEPARIN SOD (PORCINE) 5,000 UNIT/ML 1 ML VIAL SUBCUT SCH ×2 (06:10→15:20)
[2020-03-24] MEDS: PANTOPRAZOLE SODIUM 40 MG TABLET.DR PO SCH (06:11)
[2020-03-24] MEDS: CALCIUM CARBONATE 500 MG TAB.CHEW PO SCH ×3 (08:00→17:19)
--- NOTE | 2020-03-24 09:50 | EKG REPORT ---
SEVERITY:- OTHERWISE NORMAL ECG - SINUS RHYTHM LEFT AXIS DEVIATION : Confirmed on behalf of: Dat Ford MD 24-Mar-2020 09:49:46
[2020-03-24] MEDS: DOCUSATE SODIUM 100 MG CAPSULE PO SCH ×2 (10:17→17:19)
[2020-03-24] MEDS: BACITRACIN ZINC OINTMENT 15 GM TP SCH (10:17)
--- NOTE | 2020-03-24 12:04 | PDOC PROGRESS REPORT ---
Subjective Date:: 03/24/20 Subjective:: Patient has no new complaints. In fact his answers to questions are very limited. He constantly looking down in his bed. Does not make eye contact. Extremely depressed affect. Reason For Visit: TYLENOL PM OVERDOSE Physical Exam Vital Signs: Temp Pulse Resp BP Pulse Ox 98.1 F 85 16 149/76 H 96 03/24/20 08:00 03/24/20 08:00 03/24/20 08:00 03/24/20 08:00 03/24/20 08:00 Intake & Output 03/23/20 03/24/20 03/25/20 06:59 06:59 06:59 Intake Total 1000 478 Output Total 950 1150 Balance 50 -672 Weight 98.5 kg 96.5 kg General appearance: PRESENT: no acute distress, cooperative, well-developed Head exam: PRESENT: normocephalic, other - Abrasions on scalp healing nicely Eye exam: PRESENT: conjunctiva pink. ABSENT: scleral icterus Ear exam: PRESENT: normal external ear exam. ABSENT: bleeding, drainage Mouth exam: PRESENT: moist, tongue midline Respiratory exam: PRESENT: clear to auscultation tye, symmetrical, unlabored. ABSENT: prolonged expiratory phas, rales, rhonchi, tachypnea, wheezes Cardiovascular exam: PRESENT: RRR, +S1, +S2. ABSENT: bradycardia, diastolic murmur, irregular rhythm, systolic murmur, tachycardia GI/Abdominal exam: PRESENT: distended - Patient reports that this is his baseline, normal bowel sounds, soft. ABSENT: guarding, tenderness Rectal exam: PRESENT: deferred Gentrourinary exam: ABSENT: indwelling catheter Extremities exam: PRESENT: full ROM. ABSENT: pedal edema Musculoskeletal exam: PRESENT: ambulatory, normal inspection. ABSENT: deformity, dislocation Neurological exam: PRESENT: alert, awake, oriented to person, oriented to place, oriented to time, oriented to situation, CN II-XII grossly intact Psychiatric exam: PRESENT: depressed - Severe. ABSENT: agitated, anxious Focused psych exam: ABSENT: delusional, paranoid, restlessness Skin exam: PRESENT: abrasion - On scalp healing nicely Results Laboratory Results: 03/24/20 04:15 03/24/20 04:15 03/23/20 03/23/20 03/24/20 15:39 23:41 04:15 WBC 10.8 H RBC 5.89 H Hgb 17.0 Hct 50.9 MCV 86 MCH 28.8 MCHC 33.4 RDW 14.0 Plt Count 156 Seg Neutrophils % 71.1 Sodium Potassium Chloride Carbon Dioxide Anion Gap BUN Creatinine Est GFR ( Amer) Glucose Calcium Magnesium Total Bilirubin 0.7 1.1 GGT AST 108 H 94 H Alkaline Phosphatase 79 80 Total Protein 6.4 6.2 L Albumin 3.7 3.5 03/24/20 04:15 WBC RBC Hgb Hct MCV MCH MCHC RDW Plt Count Seg Neutrophils % Sodium 138.9 Potassium 3.9 Chloride 107 Carbon Dioxide 24 Anion Gap 8 BUN 7 Creatinine 1.16 Est GFR ( Amer) > 60 Glucose 99 Calcium 9.4 Magnesium 2.0 Total Bilirubin 1.2 GGT 42 AST 93 H Alkaline Phosphatase 85 Total Protein 6.6 Albumin 3.8 03/22/20 02:16 Creatine Kinase 53 L Impressions: Chest X-Ray 03/22/20 13:42 IMPRESSION: NO ACUTE RADIOGRAPHIC FINDING IN THE CHEST. Assessment and Plan - Diagnosis (1) Drug overdose, intentional Qualifiers: Encounter type: subsequent encounter Qualified Code(s): T50.902D - Poisoning by unspecified drugs, medicaments and biological substances, intentional self-harm, subsequent encounter Is this a current diagnosis for this admission?: Yes (2) Acetaminophen overdose Qualifiers: Encounter type: subsequent encounter Injury intent: intentional self-harm Qualified Code(s): T39.1X2D - Poisoning by 4-Aminophenol derivatives, intentional self-harm, subsequent encounter Is this a current diagnosis for this admission?: Yes (3) Suicide attempt Is this a current diagnosis for this admission?: Yes (4) Aspiration into airway Qualifiers: Encounter type: subsequent encounter Qualified Code(s): T17.908D - Unspecified foreign body in respiratory tract, part unspecified causing other injury, subsequent encounter Is this a current diagnosis for this admission?: Yes (5) Lactic acid acidosis Is this a current diagnosis for this admission?: Yes (6) Involuntary commitment Is this a current diagnosis for this admission?: Yes (7) Esophagitis Is this a current diagnosis for this admission?: Yes (8) Elevated transaminase level Is this a current diagnosis for this admission?: Yes - Plan Summary Summary: (1) Drug overdose, intentional (2) Acetaminophen overdose (3) Suicide attempt (4) Aspiration into airway (5) Lactic acid acidosis (6) Involuntary commitment (7) Esophagitis (8) elevated transaminases 03/22/2020 Patient presented to emergency department. Acetaminophen overdose identified. Dr. Hart initiated treatment protocol. Appropriate laboratory studies already ordered. Acetaminophen overdose intentional-based on the patient's acetaminophen levels this was clearly an intentional overdose. Per my discussion with the emergency department physician as well as psychiatry it was a result of an argument with his "ex "significant other. We will complete the N-acetylcysteine protocol. His acetaminophen level is already down to 60 and I anticipated to be less than 30 by tomorrow morning. He has not exhibited any significant change in his transaminases. He has been seen by psychiatry and is currently under involuntary commitment. Suicide attempt-based on emergency department and psychiatry discussions with family and significant other it appears that this is in fact a suicide attempt. We will continue involuntary commitment and psych will reevaluate the patient tomorrow. Aspiration into airway-the patient had significant vomiting earlier today. Will monitor for aspiration pneumonitis. Esophagitis-the patient's throat is sore. It is likely esophagitis from all of the vomiting. I have actually ordered calcium carbonate on a scheduled basis for a 24-hour period. He will also be on Protonix. He may need full liquid diet or soft mechanical initially. Lactic acidosis-the patient's lactic acid level was 14 on admission. It is down to 1. Improved with IV fluids. Patient will be admitted to [facility]. We will continue involuntary commitment status. A sitter has been ordered. We will monitor him on telemetry. Continue N-acetylcysteine per protocol that the emergency department instituted. Laboratory studies as ordered by the emergency room physician. 03/23/2020 Acetaminophen overdose intentional-Poison control reached out to the plug shaper hand last night. Because the patient's AST is increasing they recommended continuing with the N-acetylcysteine infusion. Laboratory studies are ordered for this aft ernoon as well as in the morning. Suicide attempt-affect is still flat. I did touch base with psychiatry. The disposition plan is for placement at a psychiatric facility. In preparation for this Covid testing was ordered. Aspiration into airway-lungs are actually clear. Patient is oxygenating well on room air. Esophagitis-improved. No discomfort while eating. Lactic acidosis-resolved Elevated transaminases-ALT is still normal but the AST is now 169. That is up from 73 last night. Labs ordered for later today as well as the morning. The patient's abdomen is slightly distended. He is passing gas. Bowel sounds are normal. He did have a significant amount of emesis the night of admission. Realistically yesterday afternoon was the first time he had eaten anything. With the sore throat consumption was limited. At the time of this encounter he had eaten approximately 50% of his lunch. His AST is elevated but there is no tenderness in the abdomen. No imaging studies at this time. We will just monitor. 03/24/2020 Intentional acetaminophen overdose as a suicide attempt-patient was administered extended N-acetylcysteine by IV. His AST is down to ALT and alk phos are normal. His white blood cell count is also markedly improved and is down to 10.8. From a Tylenol overdose/medical point of view he in fact is stable for discharge. Aspiration into airway-no evidence of any aspiration pneumonitis Esophagitis-improved Lactic acidemia resolved Elevated transaminases-as above Depression-the patient's presentation is 1 of marked depression. He is not making eye contact. He has very limited verbal interaction. When asked about symptoms his answers tend to be "okay" and "that is normal". Does not engage meaningfully in the interaction of this visit. - Time Time Spent with patient: 15-24 minutes Medications reviewed and adjusted accordingly: Yes Anticipated Discharge Disposition: Psych Hospital/Unit Anticipated Discharge Timeframe: when bed available
[2020-03-24] MEDS ORDERED: PROMETHAZINE HCL INJ 25 MG/1 ML VIAL IV PRN (15:00)
--- NOTE | 2020-03-24 19:25 | PDOC DISCHARGE SUMMARY ---
Impression - Admit/DC Date/PCP Admission Date/Primary Care Provider: 03/24/20 13:25 Discharge Date: 03/24/20 - Discharge Diagnosis (1) Drug overdose, intentional Is this a current diagnosis for this admission?: Yes (2) Acetaminophen overdose Is this a current diagnosis for this admission?: Yes (3) Suicide attempt Is this a current diagnosis for this admission?: Yes (4) Aspiration into airway Is this a current diagnosis for this admission?: Yes (5) Lactic acid acidosis Is this a current diagnosis for this admission?: Yes (6) Involuntary commitment Is this a current diagnosis for this admission?: Yes (7) Esophagitis Is this a current diagnosis for this admission?: Yes (8) Elevated transaminase level Is this a current diagnosis for this admission?: Yes - Assessment Summary: (1) Drug overdose, intentional (2) Acetaminophen overdose (3) Suicide attempt (4) Aspiration into airway (5) Lactic acid acidosis (6) Involuntary commitment (7) Esophagitis (8) elevated transaminases 03/22/2020 Patient presented to emergency department. Acetaminophen overdose identified. Dr. Hart initiated treatment protocol. Appropriate laboratory studies already ordered. Acetaminophen overdose intentional-based on the patient's acetaminophen levels this was clearly an intentional overdose. Per my discussion with the emergency department physician as well as psychiatry it was a result of an argument with his "ex "significant other. We will complete the N-acetylcysteine protocol. His acetaminophen level is already down to 60 and I anticipated to be less than 30 by tomorrow morning. He has not exhibited any significant change in his transaminases. He has been seen by psychiatry and is currently under involuntary commitment. Suicide attempt-based on emergency department and psychiatry discussions with family and significant other it appears that this is in fact a suicide attempt. We will continue involuntary commitment and psych will reevaluate the patient tomorrow. Aspiration into airway-the patient had significant vomiting earlier today. Will monitor for aspiration pneumonitis. Esophagitis-the patient's throat is sore. It is likely esophagitis from all of the vomiting. I have actually ordered calcium carbonate on a scheduled basis for a 24-hour period. He will also be on Protonix. He may need full liquid diet or soft mechanical initially. Lactic acidosis-the patient's lactic acid level was 14 on admission. It is down to 1. Improved with IV fluids. Patient will be admitted to [facility]. We will continue involuntary commitment status. A sitter has been ordered. We will monitor him on telemetry. Continue N-acetylcysteine per protocol that the emergency department instituted. Laboratory studies as ordered by the emergency room physician. 03/23/2020 Acetaminophen overdose intentional-Poison control reached out to the logistics loss prevention manager last night. Because the patient's AST is increasing they recommended continuing with the N-acetylcysteine infusion. Laboratory studies are ordered for this afternoon as well as in the morning. Suicide attempt-affect is still flat. I did touch base with psychiatry. The disposition plan is for placement at a psychiatric facility. In preparation for this Covid testing was ordered. Aspiration into airway-lungs are actually clear. Patient is oxygenating well on room air. Esophagitis-improved. No discomfort while eating. Lactic acidosis-resolved Elevated transaminases-ALT is still normal but the AST is now 169. That is up from 73 last night. Labs ordered for later today as well as the morning. The patient's abdomen is slightly distended. He is passing gas. Bowel sounds are normal. He did have a significant amount of emesis the night of admission. Realistically yesterday afternoon was the first time he had eaten anything. With the sore throat consumption was limited. At the time of this encounter he had eaten approximately 50% of his lunch. His AST is elevated but there is no tenderness in the abdomen. No imaging studies at this time. We will just monitor. 03/24/2020 Intentional acetaminophen overdose as a suicide attempt-patient was administered extended N-acetylcysteine by IV. His AST is down to ALT and alk phos are normal. His white blood cell count is also markedly improved and is down to 10.8. From a Tylenol overdose/medical point of view he in fact is stable for discharge. Aspiration into airway-no evidence of any aspiration pneumonitis Esophagitis-improved Lactic acidemia resolved Elevated transaminases-as above Depression-the patient's presentation is 1 of marked depression. He is not making eye contact. He has very limited verbal interaction. When asked about symptoms his answers tend to be "okay" and "that is normal". Does not engage meaningfully in the interaction of this visit. 03/24/2020 Notified by psychiatry that the patient has been accepted to an acute psychiatric facility. The patient needs to be transferred this evening to avoid losing the bed. Patient will be discharged. - Additional Information Resuscitation Status: Full Code Home Medications: Bacitracin Zinc [Bacitracin Oint 15 gm] 1 applic TP Q12 tube 03/24/20 History of Present Illiness History of Present Illness: RUBY GUERIN is a 59 year old male who evidently had an argument with his significant other last night. They evidently broke up in January but are still cohabitating. The argument was, I believe, about finances. When he did not return home for over 2 hours she called the police. A search was initiated. The patient was found unconscious and they report that the only reason they found him was for his snoring. Per reports he took approximately 90 tablets of the Tylenol PM. He has been on the acetylcysteine treatment protocol. He was able to speak to me a little bit during this encounter. He is still a very poor historian so the history part of this encounter is limited. He states that his past medical history is only for COPD. He now does not smoke but he used to be on inhalers. He does not take them anymore. He cannot remember what the inhalers were. I believe he is is an outpatient clinic for his primary care. He thinks it might be [facility]. He needs to get a physical for work, I think yearly, and so he states that he has been seen within the year. He denies any other chronic illnesses such as cardiac or endocrine or psychiatric. Initial evaluation revealed an acetaminophen level at 310. He had a lactic acid of 14.1. He received fluids and was started on the N-acetylcysteine protocol. Through the night his acetaminophen levels have come down significantly. At 3:00 this morning they were down to 251, level was 184 at 8:00 this morning and at 1:00 this afternoon his level was 60. He has not had a significant elevation in his transaminases. His white blood cell count was elevated initially as was his hemoglobin with a hemoglobin of 17.8 and a white blood cell count of 13.8. Patient has very poor dentition. He is coughing and does not understand why his throat is sore. The nursing staff informed me that he was vomiting profusely earlier. It is likely a gastritis from all of the stomach acid. He has very poor dentition. A diet has been ordered. We will start with regular texture and see how he does. He will continue the last dose of N-acetylcysteine as per the protocol. Additional acetaminophen and liver chemistries have been already ordered. The patient is going to be admitted to [facility] for close observation. He is on involuntary commitment at this time and so there will be a sitter as well. He was very agitated earlier in the day but is sitting calmly in the chair at this time. Hospital Course Hospital Course: As above Physical Exam Vital Signs: Temp Pulse Resp BP Pulse Ox 97.7 F 80 20 134/80 H 94 03/24/20 11:37 03/24/20 16:10 03/24/20 16:10 03/24/20 16:10 03/24/20 16:10 Intake & Output 03/23/20 03/24/20 03/25/20 06:59 06:59 06:59 Intake Total 1000 478 120 Output Total 950 1150 Balance 50 -672 120 Weight 98.5 kg 96.5 kg General appearance: PRESENT: no acute distress, cooperative, well-developed Head exam: PRESENT: normocephalic. ABSENT: atraumatic - Abrasions on scalp Eye exam: PRESENT: conjunctiva pink. ABSENT: scleral icterus Ear exam: PRESENT: normal external ear exam. ABSENT: bleeding, drainage Mouth exam: PRESENT: moist, tongue midline Respiratory exam: PRESENT: clear to auscultation tye, symmetrical, unlabored. ABSENT: rales, rhonchi, tachypnea, wheezes Cardiovascular exam: PRESENT: RRR, +S1, +S2. ABSENT: bradycardia, diastolic murmur, irregular rhythm, systolic murmur, tachycardia GI/Abdominal exam: PRESENT: distended - Patient reports it is his baseline, normal bowel sounds, soft. ABSENT: guarding, tenderness Rectal exam: PRESENT: deferred Gentrourinary exam: ABSENT: indwelling catheter Musculoskeletal exam: PRESENT: ambulatory, normal inspection. ABSENT: deformity, dislocation Neurological exam: PRESENT: alert, awake, oriented to person, oriented to place, oriented to time, oriented to situation, CN II-XII grossly intact Psychiatric exam: PRESENT: depressed Focused psych exam: ABSENT: delusional, paranoid, restlessness Results Laboratory Results: WBC 10.8 10^3/uL (4.0-10.5) H 03/24/20 04:15 RBC 5.89 10^6/uL (4.35-5.55) H 03/24/20 04:15 Hgb 17.0 g/dL (13.5-17.0) 03/24/20 04:15 Hct 50.9 % (37.9-51.0) 03/24/20 04:15 MCV 86 fl (80-97) 03/24/20 04:15 MCH 28.8 pg (27.0-33.4) 03/24/20 04:15 MCHC 33.4 g/dL (32.0-36.0) 03/24/20 04:15 RDW 14.0 % (11.5-14.0) 03/24/20 04:15 Plt Count 156 10^3/uL (150-450) 03/24/20 04:15 Lymph % (Auto) 19.8 % (13-45) 03/24/20 04:15 Sutter % (Auto) 7.6 % (3-13) 03/24/20 04:15 Eos % (Auto) 0.8 % (0-6) 03/24/20 04:15 Baso % (Auto) 0.7 % (0-2) 03/24/20 04:15 Absolute Neuts (auto) 7.7 10^3/uL (1.7-8.2) 03/24/20 04:15 Absolute Lymphs (auto) 2.1 10^3/uL (0.5-4.7) 03/24/20 04:15 Absolute Monos (auto) 0.8 10^3/uL (0.1-1.4) 03/24/20 04:15 Absolute Eos (auto) 0.1 10^3/uL (0.0-0.6) 03/24/20 04:15 Absolute Basos (auto) 0.1 10^3/uL (0.0-0.2) 03/24/20 04:15 Seg Neutrophils % 71.1 % (42-78) 03/24/20 04:15 Sodium 138.9 mmol/L (137-145) 03/24/20 04:15 Potassium 3.9 mmol/L (3.6-5.0) 03/24/20 04:15 Chloride 107 mmol/L (98-107) 03/24/20 04:15 Carbon Dioxide 24 mmol/L (22-30) 03/24/20 04:15 Anion Gap 8 (5-19) 03/24/20 04:15 BUN 7 mg/dL (7-20) 03/24/20 04:15 Creatinine 1.16 mg/dL (0.52-1.25) 03/24/20 04:15 Est GFR ( Amer) > 60 (>60) 03/24/20 04:15 Est GFR (MDRD) Non-Af > 60 (>60) 03/24/20 04:15 Glucose 99 mg/dL (75-110) 03/24/20 04:15 Lactic Acid 1.1 mmol/L (0.7-2.1) 03/22/20 15:53 Calcium 9.4 mg/dL (8.4-10.2) 03/24/20 04:15 Magnesium 2.0 mg/dL (1.6-2.3) 03/24/20 04:15 Total Bilirubin 1.2 mg/dL (0.2-1.3) 03/24/20 04:15 Direct Bilirubin 0.2 mg/dL (0.0-0.4) 03/24/20 04:15 Neonat Total Bilirubin Not Reportable 03/24/20 04:15 Neonat Direct Bilirubin Not Reportable 03/24/20 04:15 Neonat Indirect Bili Not Reportable 03/24/20 04:15 GGT 42 U/L (8-78) 03/24/20 04:15 AST 93 U/L (17-59) H 03/24/20 04:15 ALT 25 U/L (<50) 03/24/20 04:15 Alkaline Phosphatase 85 U/L (38-126) 03/24/20 04:15 Creatine Kinase 53 U/L (55-170) L 03/22/20 02:16 Total Protein 6.6 g/dL (6.3-8.2) 03/24/20 04:15 Albumin 3.8 g/dL (3.5-5.0) 03/24/20 04:15 Urine Color YELLOW 03/22/20 02:34 Urine Appearance CLEAR 03/22/20 02:34 Urine pH 5.0 (5.0-9.0) 03/22/20 02:34 Ur Specific [place] 1.029 03/22/20 02:34 Urine Protein 30 mg/dL (NEGATIVE) H 03/22/20 02:34 Urine Glucose (UA) 150 mg/dL (NEGATIVE) H 03/22/20 02:34 Urine Ketones 20 mg/dL (NEGATIVE) H 03/22/20 02:34 Urine Blood NEGATIVE (NEGATIVE) 03/22/20 02:34 Urine Nitrite NEGATIVE (NEGATIVE) 03/22/20 02:34 Urine Bilirubin NEGATIVE (NEGATIVE) 03/22/20 02:34 Urine Urobilinogen NEGATIVE mg/dL (<2.0) 03/22/20 02:34 Ur Leukocyte Esterase NEGATIVE (NEGATIVE) 03/22/20 02:34 Urine WBC (Auto) 0 /HPF 03/22/20 02:34 Urine RBC (Auto) 0 /HPF 03/22/20 02:34 U Hyaline Cast (Auto) 5 /LPF 03/22/20 02:34 Urine Mucus (Auto) RARE /LPF 03/22/20 02:34 Urine Ascorbic Acid NEGATIVE (NEGATIVE) 03/22/20 02:34 Salicylates 1.6 mg/dL (2.0-20.0) L 03/22/20 03:37 Urine Opiates Screen NEGATIVE 03/22/20 02:34 Urine Methadone Screen NEGATIVE 03/22/20 02:34 Acetaminophen < 10 ug/mL (10-30) L 03/23/20 03:09 Ur Barbiturates Screen NEGATIVE 03/22/20 02:34 Ur Phencyclidine Scrn NEGATIVE 03/22/20 02:34 Ur Amphetamines Screen NEGATIVE 03/22/20 02:34 U Benzodiazepines Scrn NEGATIVE 03/22/20 02:34 Urine Cocaine Screen NEGATIVE 03/22/20 02:34 U Marijuana (THC) Screen NEGATIVE 03/22/20 02:34 Serum Alcohol < 10 mg/dL (NONE DETECTED) 03/22/20 02:16 COVID-19 Source See comment 03/22/20 20:47 COVID-19 (ERICKA) Not Detected (Not Detect) 03/22/20 20:47 Impressions: Chest X-Ray 03/22/20 13:42 IMPRESSION: NO ACUTE RADIOGRAPHIC FINDING IN THE CHEST. Plan Health Concerns: Severely depressed with suicide attempt Plan of Treatment: Acetaminophen toxicity has resolved. Transfer to inpatient psychiatric hospital. Goals: Adequate treatment for depression Time Spent: Greater than 30 Minutes Stroke Is this a Stroke Patient?: No Acute Heart Failure Is this a Heart Failure Patient?: No
--- NOTE | 2020-03-24 19:43 | PSYCHOLOGICAL NOTE ---
Psych Note - Psych Note Date seen by psych provider: 03/24/20 Time seen by psych provider: 18:55 Psych Note: Patient remains under full IVC and now that he is medically cleared, his packet will be sent to inpatient facilities. There are significant concerns for his sa fety due to the stressor in his life of the break up and not having a home to go back to. Patient acted impulsively when he intentionally overdosed on pills and attempted to not be found when he wandered into the noel. [id number] Schaefer and he reported patient is medically cleared. Informed him process for placement for inpatient hospitalization will begin today. 155 faxed IVC referral packet to [place] ([phone]) and [place] ([phone]). 155 Fax was a success [phone] called to confirm patient was still in hospital ([phone]) [phone] [facility] called to accept patient: Dr. Kishan Brown accepting doctor; nurse to nurse for report to call [phone] checked in with patient to inform him of being transported to [place]; he inquired to call his son and request was relayed to nurse. Also spoke to nurse prior to this to discuss calling for nurse to nurse report for [facility] and she reported understanding. [id number] IVC paperwork faxed to [facility] requesting transport to occur tonight or will lose bed; informed patient is located on the 5th floor, room 534 Impression/ Plan: Patient has been accepted to [place] for inpatient ho spitalization. [facility] Shaw was consulted to care management of this patient; attending physicians in agreement with recommendations and disposition.
[2020-03-24 20:18] VITALS: BP 137/91
== END 2020-03-24 20:00 | DRG 918 ==
LOC: ER 02:08 → INTOOBSV 14:06 → EH 14:06 → 5 18:15 → OBSVTOIN 03-24 13:25
PROVIDERS: ADMIT Hospitalist; ATTEND Hospitalist
DX: T39.1X2A Poisoning by 4-Aminophenol derivatives, intentional self-harm, initial encounter (principal); E87.2 Acidosis; Y92.9 Unspecified place or not applicable; K20.90 Esophagitis, unspecified without bleeding; R74.8 Abnormal levels of other serum enzymes; J44.9 Chronic obstructive pulmonary disease, unspecified; T17.908A Unspecified foreign body in respiratory tract, part unspecified causing other injury, initial encounter; R11.10 Vomiting, unspecified; T68.XXXA Hypothermia, initial encounter; Z87.891 Personal history of nicotine dependence; Z79.899 Other long term (current) drug therapy
CPT/HCPCS: 36415; 51702; 71045; 80048; 80053; 80076; 80307; 81001; 82550; 82977; 83605; 83735; 85025; 87070; 87635; 93005; 93010; 96361; 96365; 96366; 96367; 96368; 96375; 96376; 99285; C9803; G0378; J0132; J1644; J2060; J2405; J2550; J3490; J7030